=== PATIENT | female | born 1940 | race Caucasian/White ===

== ENCOUNTER → 2017-02-18 | Outpatient (CLI) | payer MEDICARE ==
[2017-02-18 20:00] LABS: HEMOGLOBIN 14.6 gm/dl (12.3-15.3); RED BLOOD COUNT 4.62 M/UL (4.00-5.10); WHITE BLOOD COUNT 4.7 K/UL (4.5-11.0)
== END ==
LOC: LAB 19:00 → RAD 19:00
PROVIDERS: Nurse Practitioner Family
DX: J20.9 Acute bronchitis, unspecified (principal); J43.9 Emphysema, unspecified
CPT/HCPCS: 36415; 71020; 85025

== ENCOUNTER 2020-11-01 16:28 | Emergency (ER) | payer MEDICARE ==
[~2020-11-01 16:28] MED LIST: BENTYL 20MG TAB20 MG PO; MACROBID 100 M100 MG PO; PROTONIX40 MG PO; ZOFRAN4 MG PO
[2020-11-01 17:31] LABS: HEMOGLOBIN 13.5 gm/dl (12.3-15.3); RED BLOOD COUNT 4.24 M/UL (4.00-5.10)
[2020-11-01 18:09] LABS: BUN/CREATININE RATIO 15 (0-10)
== END 2020-11-01 22:11 | disposition home or self-care (01) ==
LOC: ER1 16:28
PROVIDERS: Family Medicine
DX: R07.9 Chest pain, unspecified (principal)
CPT/HCPCS: 71045; 80053; 82550; 82553; 83690; 83735; 83874; 84484; 85025; 85379; 93005; 99285; Q9967

== ENCOUNTER → 2021-05-26 | Outpatient (CLI) | payer MEDICARE, OTHER | LOC: KOH-I 12:48 | DX: E04.2 Nontoxic multinodular goiter (principal) | CPT/HCPCS: 76536 ==

== ENCOUNTER → 2021-07-14 | Outpatient (CLI) | payer MEDICARE, OTHER | LOC: KOH-I 14:17 | DX: F09 Unspecified mental disorder due to known physiological condition (principal) | CPT/HCPCS: 70450 ==

== ENCOUNTER → 2021-12-30 | Outpatient (CLI) | payer MEDICARE, OTHER | LOC: RAD 07:19 | DX: R13.11 Dysphagia, oral phase (principal) | CPT/HCPCS: 74221 ==

== ENCOUNTER 2022-01-31 12:44 | Emergency (ER) | payer MEDICARE, OTHER ==
[2022-01-31 14:51] LABS: HEMOGLOBIN 14.1 gm/dl (12.3-15.3); RED BLOOD COUNT 4.48 M/UL (4.00-5.10); WHITE BLOOD COUNT 20.3 K/UL (4.5-11.0)
[2022-01-31 15:26] LABS: BUN/CREATININE RATIO 23 (0-10)
== END 2022-01-31 20:40 | disposition short-term general hospital (02) ==
LOC: ER1 12:44
PROVIDERS: Family Medicine
DX: N13.2 Hydronephrosis with renal and ureteral calculous obstruction (principal); D72.829 Elevated white blood cell count, unspecified; N39.0 Urinary tract infection, site not specified; R13.10 Dysphagia, unspecified; Z20.822 Contact with and (suspected) exposure to COVID-19; F03.90 Unspecified dementia, unspecified severity, without behavioral disturbance, psychotic disturbance, mood disturbance, and anxiety; Z86.69 Personal history of other diseases of the nervous system and sense organs; Z86.19 Personal history of other infectious and parasitic diseases
CPT/HCPCS: 0240U; 51702; 71045; 80053; 81001; 82550; 82553; 83605; 84484; 85025; 87040; 87086; 93005; 96374; 99285; J0696

== ENCOUNTER 2022-04-16 18:44 | Emergency (ER) | payer MEDICARE, OTHER ==
[2022-04-16 19:51] LABS: BUN/CREATININE RATIO 14 (0-10)
[2022-04-16 19:54] LABS: RED BLOOD COUNT 4.16 M/UL (4.00-5.10); WHITE BLOOD COUNT 4.4 K/UL (4.5-11.0)
[2022-04-16] MEDS ORDERED: OMNICEF 300 MG300 MG PO (22:36)
== END 2022-04-16 22:50 | disposition home or self-care (01) ==
LOC: ER1 18:44
PROVIDERS: Emergency Medicine
DX: N30.00 Acute cystitis without hematuria (principal)
CPT/HCPCS: 70450; 71045; 80053; 81001; 83605; 83735; 84100; 85025; 87040; 87086; 96374; 99285; J0696

== ENCOUNTER 2022-05-20 17:42 | Inpatient (IN) | payer MEDICARE, OTHER ==
[~2022-05-20] VITALS: Ht 160 cm; Wt 47.2 kg
[~2022-05-20 17:42] MED LIST changes: +OMNICEF 300 MG300 MG PO
[2022-05-20 18:45] LABS: HEMOGLOBIN 14.4 gm/dl (12.3-15.3); RED BLOOD COUNT 4.6 M/UL (4.00-5.10); WHITE BLOOD COUNT 3.2 K/UL (4.5-11.0)
[2022-05-20 19:24] LABS: BUN/CREATININE RATIO 31 (0-10)
[2022-05-21 04:23] LABS: HEMOGLOBIN 12.7 gm/dl (12.3-15.3); RED BLOOD COUNT 4.18 M/UL (4.00-5.10)
[2022-05-21 04:25] LABS: WHITE BLOOD COUNT 2.2 K/UL (4.5-11.0)
[2022-05-21 05:15] LABS: BUN/CREATININE RATIO 25 (0-10)
[2022-05-21] MEDS ORDERED: DIVALPROEX SOD125 M1 PO (11:56)
[2022-05-21] MEDS ORDERED: ALPRAZOLAM0.25 MG PO (11:57)
[2022-05-21] MEDS ORDERED: QUETIAPINE FUMA25 MG PO (11:57)
[2022-05-21] MEDS ORDERED: CARBIDOPA-LEVO1 EA14 PO (11:58)
[2022-05-21] MEDS ORDERED: BENZTROPINE MESY1 MG PO (12:00)
[2022-05-21] MEDS ORDERED: BUSPIRONE HCL10 MG PO (12:02)
[2022-05-22 06:08] LABS: HEMOGLOBIN 13.9 gm/dl (12.3-15.3); RED BLOOD COUNT 4.45 M/UL (4.00-5.10); WHITE BLOOD COUNT 2.7 K/UL (4.5-11.0)
[2022-05-22 06:42] LABS: BUN/CREATININE RATIO 29 (0-10)
[2022-05-23 07:14] LABS: HEMOGLOBIN 13.7 gm/dl (12.3-15.3); RED BLOOD COUNT 4.46 M/UL (4.00-5.10); WHITE BLOOD COUNT 2.1 K/UL (4.5-11.0)
[2022-05-23 07:46] LABS: BUN/CREATININE RATIO 25 (0-10)
[2022-05-24 06:56] LABS: BUN/CREATININE RATIO 24 (0-10)
[2022-05-24 06:58] LABS: RED BLOOD COUNT 4.57 M/UL (4.00-5.10)
[2022-05-24 07:16] LABS: WHITE BLOOD COUNT 1.5 K/UL (4.5-11.0)
--- NOTE | 2022-05-24 15:36 | NUR ---
PATIENT VERY DROWSY GLUCOSE CHECK WAS 235 DR HERNANDEZ AWARE.
[2022-05-25 06:32] LABS: HEMOGLOBIN 16.1 gm/dl (12.3-15.3); RED BLOOD COUNT 5.14 M/UL (4.00-5.10); WHITE BLOOD COUNT 9.3 K/UL (4.5-11.0)
[2022-05-25 06:42] LABS: BUN/CREATININE RATIO 22 (0-10)
[2022-05-26 04:08] LABS: HEMOGLOBIN 14.8 gm/dl (12.3-15.3); RED BLOOD COUNT 4.71 M/UL (4.00-5.10)
[2022-05-26 04:30] LABS: BUN/CREATININE RATIO 31 (0-10)
[2022-05-26 17:11] LABS: HEMATOCRIT 45.2 % (34.0-46.6)
[2022-05-27 04:22] LABS: HEMOGLOBIN 14.5 gm/dl (12.3-15.3); RED BLOOD COUNT 4.72 M/UL (4.00-5.10); WHITE BLOOD COUNT 12.7 K/UL (4.5-11.0)
[2022-05-27 08:02] LABS: BUN/CREATININE RATIO 49 (0-10)
[2022-05-27 23:47] LABS: BUN/CREATININE RATIO 48 (0-10)
[2022-05-28 04:56] LABS: RED BLOOD COUNT 4.54 M/UL (4.00-5.10); WHITE BLOOD COUNT 12.1 K/UL (4.5-11.0)
[2022-05-28 05:34] LABS: BUN/CREATININE RATIO 48 (0-10)
[2022-05-28 11:12] LABS: HBSAG SCREEN Negative (Negative); HCV AB 0.1 (0.0-0.9); HEP A AB, IGM Negative (Negative); HEP B CORE AB, IGM Negative (Negative)
[2022-05-29 05:00] LABS: HEMOGLOBIN 13.1 gm/dl (12.3-15.3); RED BLOOD COUNT 4.28 M/UL (4.00-5.10); WHITE BLOOD COUNT 12.6 K/UL (4.5-11.0)
[2022-05-29 05:25] LABS: BUN/CREATININE RATIO 37 (0-10)
[2022-05-30 12:13] LABS: HSV-2 IGG SUPPLEMENTAL TEST Positive (Negative)
[2022-05-30 13:08] LABS: ACTIN (SMOOTH MUSCLE) ANTIBODY 9 Units (0-19)
[2022-05-31 08:19] LABS: HEMOGLOBIN 14.5 gm/dl (12.3-15.3); WHITE BLOOD COUNT 13.5 K/UL (4.5-11.0)
[2022-05-31 08:27] LABS: RED BLOOD COUNT 4.77 M/UL (4.00-5.10)
[2022-05-31 09:06] LABS: BUN/CREATININE RATIO 41 (0-10)
--- NOTE | 2022-05-31 22:51 | NUR ---
O2 SAT READING OUT 74% ON 09/03 BIPAP 100% FIO2. CALLED DR. MAGANA. CHANGED BIPAP TO 09/06 100% FIO2. O2 SAT NOW 96%. BP IS NOW 84/53. CALLED DR. MAGANA. ORDER RECEIVED TO BOLUS 500 ML NS ONE TIME. BOLUS INFUSING NOW. WILL UPDATE EHR.
[2022-06-01 07:56] LABS: HEMOGLOBIN 15.1 gm/dl (12.3-15.3); RED BLOOD COUNT 4.94 M/UL (4.00-5.10)
[2022-06-01 07:57] LABS: WHITE BLOOD COUNT 23.7 K/UL (4.5-11.0)
[2022-06-01 15:11] LABS: ANTI-CENTROMERE B ANTIBODIES <0.2 AI (0.0-0.9); ANTI-DNA (DS) AB QN 1 IU/mL (0-9); ANTI-JO-1 <0.2 AI (0.0-0.9); ANTICHROMATIN ANTIBODIES <0.2 AI (0.0-0.9); ANTIRIBOSOMAL P ANTIBODIES <0.2 AI (0.0-0.9); ANTISCLERODERMA-70 ANTIBODIES <0.2 AI (0.0-0.9); RNP ANTIBODIES 0.2 AI (0.0-0.9); SJOGREN'S ANTI-SS-A 0.2 AI (0.0-0.9); SJOGREN'S ANTI-SS-B 1.4 AI (0.0-0.9); SMITH ANTIBODIES <0.2 AI (0.0-0.9); SMITH/RNP ANTIBODIES <0.2 AI (0.0-0.9)
[2022-06-02 01:37] LABS: HEMOGLOBIN 14.2 gm/dl (12.3-15.3); RED BLOOD COUNT 4.63 M/UL (4.00-5.10); WHITE BLOOD COUNT 26.6 K/UL (4.5-11.0)
[2022-06-02 08:15] LABS: CMV QUANT DNA PCR (PLASMA) Negative (Negative)
--- NOTE | 2022-06-02 19:37 | NUR ---
Absent corenal reflex, absent heart tones, absent spontaneous respirations noted at this time. Verified by 2nd RN. notified. [employer] notified.
== END 2022-06-02 21:50 | disposition expired | DRG 177 ==
LOC: ER1 17:42 → CDU 21:55 → MED SURG 4 21:55 → CDU 21:55 → MED SURG 4 05-21 09:31
PROVIDERS: Family Medicine; Internal Medicine; Registered Nurse; ADMIT Internal Medicine
PROC: 8E0ZXY6 Isolation (ICD-10-PCS; 2022-05-21)
PROC: 3E03329 Introduction of Other Anti-infective into Peripheral Vein, Percutaneous Approach (ICD-10-PCS; principal; 2022-05-24)
PROC: 0DJ08ZZ Inspection of Upper Intestinal Tract, Via Natural or Artificial Opening Endoscopic (ICD-10-PCS; 2022-05-29)
PROC: 0DH63UZ Insertion of Feeding Device into Stomach, Percutaneous Approach (ICD-10-PCS; 2022-05-29)
PROC: 5A09457 Assistance with Respiratory Ventilation, 24-96 Consecutive Hours, Continuous Positive Airway Pressure (ICD-10-PCS; 2022-05-31)
DX: U07.1 COVID-19 (principal); A41.9 Sepsis, unspecified organism; G92.8 Other toxic encephalopathy; K72.00 Acute and subacute hepatic failure without coma; Z66 Do not resuscitate; J69.0 Pneumonitis due to inhalation of food and vomit; J96.01 Acute respiratory failure with hypoxia; J18.9 Pneumonia, unspecified organism; R65.20 Severe sepsis without septic shock; D61.818 Other pancytopenia; N13.30 Unspecified hydronephrosis; E87.1 Hypo-osmolality and hyponatremia; E46 Unspecified protein-calorie malnutrition; E87.0 Hyperosmolality and hypernatremia; K80.00 Calculus of gallbladder with acute cholecystitis without obstruction; N17.9 Acute kidney failure, unspecified; D68.4 Acquired coagulation factor deficiency; E87.2 Acidosis; Z68.1 Body mass index [BMI] 19.9 or less, adult; F03.90 Unspecified dementia, unspecified severity, without behavioral disturbance, psychotic disturbance, mood disturbance, and anxiety; E86.0 Dehydration; D70.9 Neutropenia, unspecified; E16.2 Hypoglycemia, unspecified; L89.156 Pressure-induced deep tissue damage of sacral region; R74.01 Elevation of levels of liver transaminase levels; K75.4 Autoimmune hepatitis; E87.6 Hypokalemia; R31.9 Hematuria, unspecified; R82.4 Acetonuria; R13.10 Dysphagia, unspecified; Z87.442 Personal history of urinary calculi; Z79.899 Other long term (current) drug therapy; Z82.49 Family history of ischemic heart disease and other diseases of the circulatory system; Z51.5 Encounter for palliative care
CPT/HCPCS: 0240U; 36415; 36600; 51701; 70450; 70551; 71045; 74018; 74181; 76705; 78226; 80048; 80053; 80074; 80076; 81001; 82103; 82140; 82248; 82390; 82525; 82550; 82553; 82607; 82728; 82747; 82803; 82962; 83010; 83516; 83605; 83735; 83880; 83921; 84100; 84439; 84443; 84484; 85007; 85025; 85027; 85610; 86376; 86665; 86695; 86696; 87040; 87086; 87497; 92526; 92610; 93005; 94660; 94760; 96372; 97162; 97166; 97530; 99285; A6212; A9537; G0378; G0480; J0696; J1650; J2020; J2060; J2270; J2543; J7040; Q9967